=== PATIENT | male | born 1975 | race Two or more races ===

== ENCOUNTER 2017-09-24 01:37 | Emergency (ER) | payer MEDICAID, OTHER ==
[~2017-09-24] VITALS: Ht 165.1 cm; Wt 99.3 kg
[~2017-09-24 01:37] MED LIST: ADVAIR 100-501 EACH; AMITRIPTYLINE H25 MG PO; ASPIRIN ENTERI325 MG PO; DOXEPIN HCL25 MG PO; GABAPENTIN300 MG PO; LASIX40 MG PO; LEVAQUIN500 MG PO; METOPROLOL TART25 MG PO; MUCINEX DM ER1 EACH PO; NEXIUM40 MG; OMEGA-31000 MG; OMEPRAZOLE40 MG; POTASSIUM CHLO20 ME1 PO; PRAVASTATIN SOD20 MG PO; PREDNISONE20 MG PO; PROMETHAZINE CODEINE PO; ROBITUSSIN COU118 ML PO; SPIRIVA18 MCG INH; TRAZODONE HCL50 MG PO; ULTRAM50 MG PO; breo
[2017-09-24] MEDS ORDERED: ACETAMINOPHEN 325 MG TAB PO ONE (02:00)
--- NOTE | 2017-09-24 02:26 | Diagnostic Imaging Report ---
EXAMINATION: CHEST SINGLE (NOT PORTABLE) INDICATION: Cough. COMPARISON: 09/22/2016 FINDINGS: TUBES and LINES: None. LUNGS: Lungs are well inflated. There are bibasilar atelectasis. There is no evidence of pneumonia or pulmonary edema. PLEURA: No pleural effusion or pneumothorax. HEART AND MEDIASTINUM: The cardiomediastinal silhouette is unremarkable. BONES AND SOFT TISSUES: No acute osseous lesion. Soft tissues are unremarkable. UPPER ABDOMEN: No free air under the diaphragm. IMPRESSION: No acute thoracic abnormality. Signed by: Dr. Wilfred Dickerson M.D. on 09/24/2017 2:22 AM
[2017-09-24 02:34] LABS: BASOPHILS # (AUTO) 0.1 (0.0-0.1); BASOPHILS % 0.6 % (0.0-1.0); EOSINOPHILS # (AUTO) 0.3 (0.0-0.4); EOSINOPHILS % 2.2 % (0.0-6.0); HEMATOCRIT 40.8 % (38.2-49.6); HEMOGLOBIN 13.5 g/dL (14.0-18.0); LYMPHOCYTES # (AUTO) 2.1 (1.0-3.2); LYMPHOCYTES % 17.6 % (18.0-39.1); MEAN CORPUSCULAR HEMOGLOBIN 26.3 pg (28-32); MEAN CORPUSCULAR HGB CONC 33.1 g/dL (31-35); MEAN CORPUSCULAR VOLUME 79.5 fL (81-99); MONOCYTES # (AUTO) 1.4 (0.2-0.8); MONOCYTES % 11.5 % (4.4-11.3); NEUTROPHILS # (AUTO) 8.2 (2.1-6.9); NEUTROPHILS % 67.8 % (38.7-80.0); PLATELET COUNT 348 x10e3/uL (140-360); RED BLOOD COUNT 5.13 x10e6/uL (4.3-5.7); RED CELL DISTRIBUTION WIDTH 14.4 % (11.7-14.4)
[2017-09-24 02:53] LABS: ALANINE AMINOTRANSFERASE 108 IU/L (0-55); ALKALINE PHOSPHATASE 110 IU/L (40-150); ANION GAP 13.6 mmol/L (8-16); BLOOD UREA NITROGEN 10 mg/dL (7-26); BUN/CREATININE RATIO 10 (6-25); CALCIUM 9.1 mg/dL (8.4-10.2); CARBON DIOXIDE 22 mmol/L (22-29); CHLORIDE 104 mmol/L (98-107); CREATINE KINASE 107 IU/L (30-200); EST GLOMERULAR FILTRATION RATE > 60 ML/MIN (60-); GLUCOSE 126 mg/dL (74-118); POTASSIUM 3.6 mmol/L (3.5-5.1); SODIUM 136 mmol/L (136-145)
[2017-09-24 03:00] LABS: TROPONIN I < 0.001 ng/mL (0-0.300)
[2017-09-24 03:13] VITALS: BP 103/73
== END 2017-09-24 03:20 | disposition home or self-care (01) ==
LOC: ER 01:37
DX: R07.89 Other chest pain (principal); R05 Cough; J10.1 Influenza due to other identified influenza virus with other respiratory manifestations; I10 Essential (primary) hypertension; E11.9 Type 2 diabetes mellitus without complications; I50.9 Heart failure, unspecified; J45.909 Unspecified asthma, uncomplicated; Z87.01 Personal history of pneumonia (recurrent)
CPT/HCPCS: 36415; 71010; 80053; 82550; 82553; 83605; 84484; 85025; 87400; 93005; 99284

== ENCOUNTER 2024-10-28 00:19 | Inpatient (IN) | payer SELFPAY ==
[2024-10-28] VITALS (31 sets, daily range): BP systolic 79–110; BP diastolic 48–72; PULSE 63–99; RESP 14–38; TEMP 97.7–98.8; O2SAT 94–100
[~2024-10-28] VITALS: Ht 160 cm; Wt 98.9 kg
[~2024-10-28 00:19] MED LIST changes: +ADVAIR 250-501 EACH INH; +AMLODIPINE BESY10 MG PO; +AMOX TR-K CLV1 EAC2 PO; +BREO INH; +DICYCLOMINE HCL10 MG PO; +ENTRESTO 24 MG1 EACH PO; +FAMOTIDINE20 MG PO; +FUROSEMIDE40 MG PO; +K-TAB10 MEQ PO; +LISINOPRIL-HCT1 EAC1 PO; +METFORMIN HCL500 MG PO; +METOPROLOL TART50 MG PO; +NAPROSYN500 MG PO; +NAPROXEN500 MG PO; -OMEGA-31000 MG; +OMEGA-31000 MG PO; +OMEPRAZOLE40 MG PO; +OZEMPIC0.25 MG/02 SC; +PANTOPRAZOLE SO20 MG PO; +PRAVASTATIN SOD40 MG PO; +ULTRAM 50MG50 MG PO
[2024-10-28] MEDS: SODIUM CHLORIDE 0.9% 1000ML 1,000 ML IV ONE ×2 (00:50→03:36)
[2024-10-28] MEDS: CALCIUM GLUC 1 G/50 ML NACL 50 ML IV ONE (00:51)
[2024-10-28] MEDS: SODIUM CHLORIDE 0.9% 1000ML 3,000 ML IV STA (00:51)
[2024-10-28] MEDS: GLUCAGON FOR INJ 1 MG VIAL IV ONE (00:56)
[2024-10-28 01:02] LABS: BASOPHILS # (AUTO) 0.1 (0.0-0.1); BASOPHILS % 0.3 % (0.0-1.0); EOSINOPHILS # (AUTO) 0.2 (0.0-0.4); EOSINOPHILS % 1.5 % (0.0-6.0); HEMATOCRIT 34.5 % (38.2-49.6); HEMOGLOBIN 11.7 g/dL (14.0-18.0); LYMPHOCYTES # (AUTO) 4.3 (1.0-3.2); MEAN CORPUSCULAR HEMOGLOBIN 26.5 pg (28-32); MEAN CORPUSCULAR HGB CONC 33.9 g/dL (31-35); MEAN CORPUSCULAR VOLUME 78.2 fL (81-99); MONOCYTES # (AUTO) 1.5 (0.2-0.8); MONOCYTES % 9.8 % (4.4-11.3); NEUTROPHILS # (AUTO) 9.2 (2.1-6.9); NEUTROPHILS % 60.1 % (38.7-80.0); PLATELET COUNT 367 x10e3/uL (140-360); RED BLOOD COUNT 4.41 x10e6/uL (4.3-5.7); RED CELL DISTRIBUTION WIDTH 14.4 % (11.7-14.4); WHITE BLOOD COUNT 15.28 x10e3/uL (4.8-10.8)
[2024-10-28 01:16] LABS: ALANINE AMINOTRANSFERASE 36 IU/L (0-55); ALBUMIN 3.8 g/dL (3.5-5.0); ALBUMIN/GLOBULIN RATIO 1.1 (0.8-2.0); ALKALINE PHOSPHATASE 94 IU/L (40-150); ANION GAP 18.2 mmol/L (8-16); BILIRUBIN,TOTAL 0.5 mg/dL (0.2-1.2); BLOOD UREA NITROGEN 37 mg/dL (7-26); BUN/CREATININE RATIO 7 (6-25); CALCIUM 8.5 mg/dL (8.4-10.2); CARBON DIOXIDE 20 mmol/L (22-29); CHLORIDE 94 mmol/L (98-107); CREATINE KINASE 53 IU/L (30-200); CREATININE, SERUM 5.11 mg/dL (0.72-1.25); EST GLOMERULAR FILTRATION RATE 13 ML/MIN (>=60); GLUCOSE 116 mg/dL (74-118); SODIUM 129 mmol/L (136-145); TOTAL PROTEIN 7.3 g/dL (6.5-8.1)
[2024-10-28 01:17] LABS: POTASSIUM 3.2 mmol/L (3.5-5.1)
[2024-10-28 01:21] LABS: CORONAVIRUS COVID-19 AG NEGATIVE (NEGATIVE); INFLUENZA A AG NEGATIVE (NEGATIVE); INFLUENZA B AG NEGATIVE (NEGATIVE)
[2024-10-28 01:27] LABS: TROPONIN I < 0.001 ng/mL (0-0.300)
[2024-10-28 04:54] LABS: CREATINE KINASE 39 IU/L (30-200)
[2024-10-28 05:03] LABS: TROPONIN I < 0.001 ng/mL (0-0.300)
[2024-10-28 05:19] LABS: BILIRUBIN,URINE NEGATIVE (NEGATIVE); CLARITY,URINE CLEAR (CLEAR); COLOR,URINE YELLOW (YELLOW); GLUCOSE, URINE NEGATIVE (NEGATIVE); KETONES,URINE NEGATIVE (NEGATIVE); LEUKOCYTE ESTERASE ,URINE NEGATIVE (NEGATIVE); NITRITE,URINE NEGATIVE (NEGATIVE); PH,URINE 6 (5 - 7); PROTEIN,URINE DIPSTICK NEGATIVE (NEGATIVE); URINE UROBILINOGEN 0.2 mg/dL (0.2 - 1)
[2024-10-28 05:31] LABS: BACTERIA,URINE FEW /HPF; EPITHELIAL CELLS,URINE FEW /LPF; RBC,URINE 0-5 /HPF (0-5); WBC,URINE (MAN) 0-5 /HPF (0-5)
[2024-10-28 05:32] LABS: MUCUS,URINE FEW; RENAL EPITHELIAL CELLS,URINE FEW
[2024-10-28] MEDS: SODIUM CHLORIDE 0.9% 1000ML 1,000 ML IV SCH ×2 (10:15→15:15)
[2024-10-28] MEDS ORDERED: DOCUSATE SODIUM 100 MG CAP PO PRN (12:30)
[2024-10-28] MEDS ORDERED: MELATONIN 3 MG TAB PO PRN (12:30)
[2024-10-28] MEDS ORDERED: ALBUTEROL/IPRATROPIUM 3 ML NEB NEB PRN (12:30)
[2024-10-28] MEDS ORDERED: DEXTROSE 50% SYRINGE 50 ML IV PRN (12:30)
[2024-10-28] MEDS ORDERED: ONDANSETRON HCL INJ 2MG/ML 2ML 2 MG/ML VIAL IV PRN (12:30)
[2024-10-28] MEDS: GABAPENTIN 300 MG CAP PO SCH (14:31)
[2024-10-28 14:35] LABS: CHOL/HDL RATIO 5.5 (3.9-4.7)
[2024-10-28 14:55] LABS: CREATINE KINASE 28 IU/L (30-200)
[2024-10-28] MEDS ORDERED: SODIUM CHLORIDE 0.9% 1000ML 1,000 ML ONE (14:58)
[2024-10-28 15:02] LABS: TROPONIN I < 0.001 ng/mL (0-0.300)
[2024-10-28] MEDS: INSULIN REGULAR, HUMAN 100 UNIT/1 ML SQ SCH (16:30)
[2024-10-28 18:11] LABS: CREATINE KINASE 30 IU/L (30-200)
[2024-10-28 18:19] LABS: TROPONIN I < 0.001 ng/mL (0-0.300)
[2024-10-28 18:22] LABS: ANION GAP 12.8 mmol/L (8-16); CALCIUM 7.7 mg/dL (8.4-10.2); CREATININE, SERUM 2.18 mg/dL (0.72-1.25)
[2024-10-28 18:31] LABS: POTASSIUM 2.8 mmol/L (3.5-5.1)
[2024-10-28] MEDS: PANTOPRAZOLE SOD 40 MG TABEC PO SCH (18:45)
[2024-10-28] MEDS: SALMETEROL XINAF/FLUTICASONE 250/50 MCG INHALER INH SCH (19:40)
[2024-10-28] MEDS: POTASSIUM CHLORIDE 20MEQ/100ML 100 ML IV SCH (20:00)
[2024-10-28] MEDS: DICYCLOMINE HCL 10 MG CAP PO SCH (20:39)
[2024-10-28] MEDS: AMITRIPTYLINE HCL 25 MG TAB PO SCH (20:39)
[2024-10-28] MEDS: HEPARIN SOD (PORCINE) 5,000 UNIT/ML VIAL SC SCH (20:41)
[2024-10-29] VITALS (29 sets, daily range): BP systolic 76–112; BP diastolic 51–77; PULSE 70–110; RESP 12–42; TEMP 98–98.4; O2SAT 93–100
[2024-10-29 06:36] LABS: BASOPHILS % 0.4 % (0.0-1.0); EOSINOPHILS # (AUTO) 0.3 (0.0-0.4); EOSINOPHILS % 3.9 % (0.0-6.0); HEMATOCRIT 31.7 % (38.2-49.6); HEMOGLOBIN 10.6 g/dL (14.0-18.0); LYMPHOCYTES # (AUTO) 2.5 (1.0-3.2); LYMPHOCYTES % 34.3 % (18.0-39.1); MEAN CORPUSCULAR HEMOGLOBIN 26.7 pg (28-32); MEAN CORPUSCULAR HGB CONC 33.4 g/dL (31-35); MEAN CORPUSCULAR VOLUME 79.8 fL (81-99); MONOCYTES # (AUTO) 0.7 (0.2-0.8); MONOCYTES % 9.7 % (4.4-11.3); NEUTROPHILS # (AUTO) 3.8 (2.1-6.9); NEUTROPHILS % 51.6 % (38.7-80.0); PLATELET COUNT 288 x10e3/uL (140-360); RED BLOOD COUNT 3.97 x10e6/uL (4.3-5.7); RED CELL DISTRIBUTION WIDTH 14.5 % (11.7-14.4)
[2024-10-29 06:58] LABS: ALBUMIN/GLOBULIN RATIO 0.9 (0.8-2.0); ANION GAP 13.2 mmol/L (8-16); BILIRUBIN,TOTAL 0.4 mg/dL (0.2-1.2); CALCIUM 8.6 mg/dL (8.4-10.2); CREATININE, SERUM 1.76 mg/dL (0.72-1.25); TOTAL PROTEIN 6.4 g/dL (6.5-8.1)
[2024-10-29 07:02] LABS: POTASSIUM 3.2 mmol/L (3.5-5.1)
[2024-10-29] MEDS ORDERED: FAMOTIDINE 20 MG TAB PO SCH (09:00)
[2024-10-29] MEDS: SENNOSIDES 8.6 MG TAB PO SCH (09:00)
[2024-10-29] MEDS: HYDROCORTISONE ACETATE 25 MG/SUPP.RECT SUPP RC SCH (09:45)
[2024-10-29] MEDS: POTASSIUM CHLORIDE 20 MEQ TAB CR PO STA (11:41)
[2024-10-30] VITALS (19 sets, daily range): BP systolic 95–111; BP diastolic 60–74; PULSE 71–100; RESP 13–34; TEMP 97.8–98.6; O2SAT 96–100
[2024-10-30 07:33] LABS: ANION GAP 12.6 mmol/L (8-16); CALCIUM 8.2 mg/dL (8.4-10.2); CREATININE, SERUM 1.05 mg/dL (0.72-1.25); POTASSIUM 3.6 mmol/L (3.5-5.1)
[2024-10-30 10:20] LABS: HEMATOCRIT 33.7 % (38.2-49.6); HEMOGLOBIN 11.1 g/dL (14.0-18.0)
[2024-10-30] MEDS: ALPRAZOLAM 0.25 MG TAB PO SCH (13:01)
[2024-10-30] MEDS: CALCIUM CARBONATE 500 MG CHEWABLE TABS PO SCH (13:01)
[2024-10-31] MEDS: CALCIUM GLUC 1 G/50 ML NACL 50 ML IV ONE (00:52)
[2024-10-31 06:46] LABS: BASOPHILS # (AUTO) 0.1 (0.0-0.1); BASOPHILS % 0.4 % (0.0-1.0); EOSINOPHILS # (AUTO) 0.4 (0.0-0.4); EOSINOPHILS % 3.5 % (0.0-6.0); HEMATOCRIT 38.5 % (38.2-49.6); HEMOGLOBIN 12.3 g/dL (14.0-18.0); LYMPHOCYTES # (AUTO) 3.6 (1.0-3.2); LYMPHOCYTES % 29.2 % (18.0-39.1); MEAN CORPUSCULAR HEMOGLOBIN 26.1 pg (28-32); MEAN CORPUSCULAR HGB CONC 31.9 g/dL (31-35); MEAN CORPUSCULAR VOLUME 81.7 fL (81-99); MONOCYTES # (AUTO) 0.9 (0.2-0.8); MONOCYTES % 7.4 % (4.4-11.3); NEUTROPHILS # (AUTO) 7.2 (2.1-6.9); NEUTROPHILS % 59.2 % (38.7-80.0); PLATELET COUNT 301 x10e3/uL (140-360); RED BLOOD COUNT 4.71 x10e6/uL (4.3-5.7); RED CELL DISTRIBUTION WIDTH 14.4 % (11.7-14.4); WHITE BLOOD COUNT 12.17 x10e3/uL (4.8-10.8)
[2024-10-31 07:14] VITALS: PULSE 89; RESP 18; O2SAT 97
[2024-10-31 07:20] LABS: ANION GAP 16.6 mmol/L (8-16); CALCIUM 8.6 mg/dL (8.4-10.2); CREATININE, SERUM 1.29 mg/dL (0.72-1.25); POTASSIUM 3.6 mmol/L (3.5-5.1)
[2024-10-31 08:00] VITALS: BP 95/65; PULSE 89; RESP 18; TEMP 98.6; O2SAT 97
[2024-10-31 08:35] VITALS: BP 94/61; PULSE 88; RESP 18; TEMP 98.1; O2SAT 96
[2024-10-31] MEDS ORDERED: ANUCORT-HC25 MG RC (09:33)
[2024-10-31] MEDS ORDERED: MIDODRINE HCL5 MG PO (09:33)
[2024-10-31] MEDS ORDERED: TUMS200 MG PO (09:33)
[2024-10-31] MEDS ORDERED: SENOKOT8.6 MG PO (09:33)
[2024-10-31] MEDS ORDERED: PANTOPRAZOLE SO40 MG PO (09:33)
[2024-10-31] MEDS ORDERED: CEPHALEXIN500 MG PO (09:37)
[2024-10-31] MEDS ORDERED: METRONIDAZOLE500 MG PO (09:37)
[2024-10-31 09:49] VITALS: BP 94/61
[2024-10-31] MEDS: MIDODRINE 2.5 MG TAB PO ONE (09:49)
== END 2024-10-31 11:28 | disposition home or self-care (01) | DRG 315 ==
LOC: ER 00:25 → ERHOLD 02:32 → ICU 06:19 → MED/SURG3 10-30 09:10
PROVIDERS: ADMIT Internal Medicine; ATTEND Internal Medicine
PROC: 06HY33Z Insertion of Infusion Device into Lower Vein, Percutaneous Approach (ICD-10-PCS; principal; 2024-10-28)
DX: I95.9 Hypotension, unspecified (principal); I50.32 Chronic diastolic (congestive) heart failure; N17.9 Acute kidney failure, unspecified; K62.5 Hemorrhage of anus and rectum; R07.89 Other chest pain; K64.8 Other hemorrhoids; J45.909 Unspecified asthma, uncomplicated; E66.9 Obesity, unspecified; Z68.38 Body mass index [BMI] 38.0-38.9, adult; I11.0 Hypertensive heart disease with heart failure; E11.9 Type 2 diabetes mellitus without complications; Z11.52 Encounter for screening for COVID-19; K76.0 Fatty (change of) liver, not elsewhere classified; K21.9 Gastro-esophageal reflux disease without esophagitis; G47.30 Sleep apnea, unspecified; F41.9 Anxiety disorder, unspecified; F39 Unspecified mood [affective] disorder; R53.81 Other malaise; T46.5X5A Adverse effect of other antihypertensive drugs, initial encounter; Z79.84 Long term (current) use of oral hypoglycemic drugs; Z79.51 Long term (current) use of inhaled steroids; Z90.49 Acquired absence of other specified parts of digestive tract
CPT/HCPCS: 36415; 70450; 71045; 76770; 80048; 80053; 80061; 81001; 82550; 82948; 83036; 83605; 83690; 83880; 84484; 85014; 85018; 85025; 87040; 87086; 93005; 93306; 94664; 94799; 99284; J1610; J1644; J2470; J2543; J3480; J7030

== ENCOUNTER 2025-05-15 20:57 | Emergency (ER) | payer OTHER ==
[~2025-05-15] VITALS: Ht 160 cm; Wt 113.4 kg
[2025-05-15 20:57] VITALS: PULSE 115; RESP 29; TEMP 99.2; O2SAT 99
[~2025-05-15 20:57] MED LIST changes: +ANUCORT-HC25 MG RC; +CEPHALEXIN500 MG PO; +METRONIDAZOLE500 MG PO; +MIDODRINE HCL5 MG PO; +PANTOPRAZOLE SO40 MG PO; +SENOKOT8.6 MG PO; +TUMS200 MG PO
[2025-05-15 21:13] LABS: BASOPHILS % 0.3 % (0.0-1.0); EOSINOPHILS % 3.3 % (0.0-6.0); LYMPHOCYTES % 25.4 % (18.0-39.1); MONOCYTES % 9.5 % (4.4-11.3); NEUTROPHILS % 61.2 % (38.7-80.0); RED CELL DISTRIBUTION WIDTH 14.5 % (11.7-14.4)
[2025-05-15 21:36] LABS: EST GLOMERULAR FILTRATION RATE 82.0 ML/MIN (>=60)
[2025-05-15 22:41] VITALS: BP 123/87; PULSE 119
[2025-05-15] MEDS: METOPROLOL TARTRATE INJ 1 MG/ML VIAL IV STA (22:41)
[2025-05-16] MEDS: KETOROLAC TROMETHAMINE 30 MG/ML VIAL IV STA (00:38)
== END 2025-05-16 01:00 | disposition home or self-care (01) ==
LOC: ER 21:04
DX: R06.02 Shortness of breath (principal); R07.89 Other chest pain; I10 Essential (primary) hypertension; E11.40 Type 2 diabetes mellitus with diabetic neuropathy, unspecified; I50.9 Heart failure, unspecified; E78.5 Hyperlipidemia, unspecified; J45.909 Unspecified asthma, uncomplicated; G47.33 Obstructive sleep apnea (adult) (pediatric)
CPT/HCPCS: 36415; 71045; 80053; 82550; 83690; 83880; 84484; 85025; 93005; 99284; J1885

== ENCOUNTER 2025-06-07 08:55 | Inpatient (IN) | payer OTHER ==
[~2025-06-07] VITALS: Ht 160 cm; Wt 100.0 kg
[2025-06-07] VITALS (18 sets, daily range): BP systolic 79–120; BP diastolic 50–77; PULSE 76–108; RESP 9–25; TEMP 97.8–98.2; O2SAT 95–100
[2025-06-07 09:33] LABS: BASOPHILS % 0.3 % (0.0-1.0); EOSINOPHILS % 5.4 % (0.0-6.0); LYMPHOCYTES % 27.2 % (18.0-39.1); MONOCYTES % 6.1 % (4.4-11.3); NEUTROPHILS % 60.7 % (38.7-80.0); RED CELL DISTRIBUTION WIDTH 14.4 % (11.7-14.4)
[2025-06-07] MEDS: SODIUM CHLORIDE 0.9% 1000ML 1,000 ML IV STA ×3 (09:34→10:56)
[2025-06-07 09:50] LABS: INR 1.0
[2025-06-07 10:05] LABS: EST GLOMERULAR FILTRATION RATE 49 ML/MIN (>=60)
[2025-06-07] MEDS ORDERED: SODIUM CHLORIDE 0.9% 1000ML 1,000 ML ONE (10:45)
[2025-06-07 11:12] LABS: AMPHETAMINES SCREEN,URINE NEGATIVE (NEGATIVE); LEUKOCYTE ESTERASE ,URINE NEGATIVE (NEGATIVE); OPIATES SCREEN,URINE NEGATIVE (NEGATIVE); PROTEIN,URINE DIPSTICK NEGATIVE (NEGATIVE)
[2025-06-07 11:13] LABS: CANNABINOIDS SCREEN,URINE NEGATIVE (NEGATIVE); COCAINE SCREEN,URINE NEGATIVE (NEGATIVE); METHADONE SCREEN, URINE NEGATIVE (NEGATIVE); URINE UROBILINOGEN 0.2 mg/dL (0.2 - 1)
[2025-06-07 11:31] LABS: EPITHELIAL CELLS,URINE FEW /LPF; WBC,URINE (MAN) 0-5 /HPF (0-5)
[2025-06-07] MEDS: SODIUM CHLORIDE 0.9% 1000ML 1,000 ML IV SCH (13:13)
[2025-06-07] MEDS ORDERED: ONDANSETRON HCL INJ 2MG/ML 2ML 2 MG/ML VIAL IV PRN (15:15)
[2025-06-07] MEDS: PANTOPRAZOLE SOD 40 MG TABEC PO SCH (15:42)
[2025-06-07] MEDS ORDERED: DEXTROSE 50% SYRINGE 50 ML IV PRN (17:30)
[2025-06-07] MEDS ORDERED: KAPSPARGO SPRIN25 MG PO (18:36)
[2025-06-07] MEDS ORDERED: ENTRESTO 24 MG1 EACH PO (18:36)
[2025-06-07] MEDS ORDERED: FUROSEMIDE40 MG PO (18:36)
[2025-06-07] MEDS: INSULIN LISPRO 100 UNIT/1 ML 3ML VIAL SQ SCH (20:08)
[2025-06-07] MEDS: PRAVASTATIN 20 MG TAB PO SCH (20:13)
[2025-06-07] MEDS ORDERED: ZOLPIDEM TARTRATE 5 MG TAB PO PRN (21:00)
[2025-06-08] VITALS (27 sets, daily range): BP systolic 76–122; BP diastolic 49–84; PULSE 79–107; RESP 8–37; TEMP 98–100; O2SAT 93–100
[2025-06-08 05:26] LABS: BASOPHILS % 0.4 % (0.0-1.0); EOSINOPHILS % 5.3 % (0.0-6.0); LYMPHOCYTES % 27.9 % (18.0-39.1); MONOCYTES % 6.5 % (4.4-11.3); NEUTROPHILS % 59.6 % (38.7-80.0); RED CELL DISTRIBUTION WIDTH 14.6 % (11.7-14.4)
[2025-06-08 05:53] LABS: EST GLOMERULAR FILTRATION RATE 60.0 ML/MIN (>=60)
[2025-06-08] MEDS: POTASSIUM CHLORIDE 20 MEQ TAB CR PO ONE ×2 (06:16→08:58)
[2025-06-08] MEDS: LACTATED RINGER'S 1,000 ML INJ ONE (08:58)
[2025-06-08] MEDS ORDERED: REGADENOSON 0.4 MG/5 ML SYR IV ONE (15:02)
[2025-06-08] MEDS: ACETAMINOPHEN 325 MG TAB PO PRN (16:13)
[2025-06-08] MEDS: LACTATED RINGER'S 350 ML INJ SCH (22:34)
[2025-06-09] VITALS (20 sets, daily range): BP systolic 83–120; BP diastolic 51–94; PULSE 76–121; RESP 7–28; TEMP 97.8–99.3; O2SAT 95–100
[2025-06-09 07:22] LABS: BASOPHILS % 0.4 % (0.0-1.0); EOSINOPHILS % 5.2 % (0.0-6.0); LYMPHOCYTES % 25.5 % (18.0-39.1); MONOCYTES % 7.7 % (4.4-11.3); NEUTROPHILS % 60.9 % (38.7-80.0); RED CELL DISTRIBUTION WIDTH 14.6 % (11.7-14.4)
[2025-06-09 07:37] LABS: EST GLOMERULAR FILTRATION RATE 81.0 ML/MIN (>=60)
[2025-06-09 08:08] LABS: PHOSPHORUS 3.2 MG/DL (2.3-4.7)
[2025-06-09] MEDS: LACTATED RINGER'S 1,000 ML INJ ONE (17:38)
[2025-06-10] VITALS (27 sets, daily range): BP systolic 80–107; BP diastolic 44–73; PULSE 71–109; RESP 12–33; TEMP 98–99.1; O2SAT 95–100
[2025-06-10 06:41] LABS: BASOPHILS % 0.5 % (0.0-1.0); EOSINOPHILS % 4.3 % (0.0-6.0); LYMPHOCYTES % 24.4 % (18.0-39.1); MONOCYTES % 7.6 % (4.4-11.3); NEUTROPHILS % 62.9 % (38.7-80.0); RED CELL DISTRIBUTION WIDTH 14.5 % (11.7-14.4)
[2025-06-10 07:03] LABS: EST GLOMERULAR FILTRATION RATE 57.0 ML/MIN (>=60); PHOSPHORUS 4.5 MG/DL (2.3-4.7)
[2025-06-10] MEDS: POTASSIUM CHLORIDE 20 MEQ TAB CR PO STA (08:00)
[2025-06-10] MEDS: MIDODRINE 2.5 MG TAB PO SCH (08:00)
[2025-06-11] VITALS (16 sets, daily range): BP systolic 78–120; BP diastolic 23–86; PULSE 70–103; RESP 11–32; TEMP 97.9–99.1; O2SAT 94–100
[2025-06-11 06:20] LABS: BASOPHILS % 0.6 % (0.0-1.0); EOSINOPHILS % 5.9 % (0.0-6.0); LYMPHOCYTES % 27.1 % (18.0-39.1); MONOCYTES % 7.1 % (4.4-11.3); NEUTROPHILS % 59.1 % (38.7-80.0); RED CELL DISTRIBUTION WIDTH 14.2 % (11.7-14.4)
[2025-06-11 06:46] LABS: EST GLOMERULAR FILTRATION RATE 73.0 ML/MIN (>=60); PHOSPHORUS 1.8 MG/DL (2.3-4.7)
[2025-06-11] MEDS: LACTATED RINGER'S 1,000 ML ONE (08:31)
[2025-06-11] MEDS: MIDODRINE HCL 5 MG TABLET PO SCH (09:10)
[2025-06-12] VITALS: BP 102/61; PULSE 81; RESP 20; TEMP 99.2; O2SAT 99
[2025-06-12 04:00] VITALS: BP 88/53; PULSE 61; RESP 20; TEMP 98.6; O2SAT 100
[2025-06-12 07:35] LABS: BASOPHILS % 0.5 % (0.0-1.0); EOSINOPHILS % 7.5 % (0.0-6.0); LYMPHOCYTES % 27.2 % (18.0-39.1); MONOCYTES % 9.6 % (4.4-11.3); NEUTROPHILS % 55.0 % (38.7-80.0); RED CELL DISTRIBUTION WIDTH 14.1 % (11.7-14.4)
[2025-06-12 08:00] VITALS: BP 98/57; PULSE 75; RESP 20; TEMP 98.6; O2SAT 97
[2025-06-12 08:02] LABS: EST GLOMERULAR FILTRATION RATE 82.0 ML/MIN (>=60); PHOSPHORUS 3.2 MG/DL (2.3-4.7)
[2025-06-12 08:04] VITALS: BP 88/53; PULSE 61; RESP 20; TEMP 98.6; O2SAT 100
[2025-06-12 12:00] VITALS: BP 112/83; PULSE 88; RESP 20; TEMP 98.8; O2SAT 100
[2025-06-12] MEDS ORDERED: PRAVASTATIN SOD20 MG PO (15:06)
[2025-06-12] MEDS ORDERED: MIDODRINE HCL5 MG PO (15:06)
[2025-06-12 16:00] VITALS: BP 115/75; PULSE 82; RESP 22; TEMP 99; O2SAT 99
[2025-06-17 08:53] LABS: RENIN, ACTIVITY PLASMA 29.289
[2025-06-17 08:54] LABS: ALDOSTERONE 1.9
== END 2025-06-12 17:00 | disposition home or self-care (01) | DRG 74 ==
LOC: ER 09:00 → ERHOLD 11:49 → ICU 16:42 → MED/SURG2 06-11 12:37
PROVIDERS: ADMIT Internal Medicine; ATTEND Internal Medicine
PROC: 02HV33Z Insertion of Infusion Device into Superior Vena Cava, Percutaneous Approach (ICD-10-PCS; principal; 2025-06-07)
DX: E11.43 Type 2 diabetes mellitus with diabetic autonomic (poly)neuropathy (principal); N17.9 Acute kidney failure, unspecified; I50.32 Chronic diastolic (congestive) heart failure; I11.0 Hypertensive heart disease with heart failure; E11.42 Type 2 diabetes mellitus with diabetic polyneuropathy; E11.22 Type 2 diabetes mellitus with diabetic chronic kidney disease; K76.0 Fatty (change of) liver, not elsewhere classified; E11.65 Type 2 diabetes mellitus with hyperglycemia; E87.6 Hypokalemia; I95.1 Orthostatic hypotension; E78.5 Hyperlipidemia, unspecified; D75.839 Thrombocytosis, unspecified; I25.10 Atherosclerotic heart disease of native coronary artery without angina pectoris; N18.31 Chronic kidney disease, stage 3a; D63.1 Anemia in chronic kidney disease; R53.81 Other malaise; K21.9 Gastro-esophageal reflux disease without esophagitis; J45.909 Unspecified asthma, uncomplicated; N50.812 Left testicular pain; R74.02 Elevation of levels of lactic acid dehydrogenase [LDH]; N45.3 Epididymo-orchitis; E66.9 Obesity, unspecified; Z68.39 Body mass index [BMI] 39.0-39.9, adult; G47.33 Obstructive sleep apnea (adult) (pediatric); Z79.84 Long term (current) use of oral hypoglycemic drugs; Z79.51 Long term (current) use of inhaled steroids; Z98.61 Coronary angioplasty status; Z98.84 Bariatric surgery status; Z83.3 Family history of diabetes mellitus; Z82.49 Family history of ischemic heart disease and other diseases of the circulatory system
CPT/HCPCS: 36415; 36569; 71045; 78452; 80053; 80307; 81001; 82088; 82533; 82550; 82948; 83605; 83735; 84100; 84156; 84244; 84484; 85025; 85610; 85730; 87040; 87071; 87205; 93005; 93017; 93306; 96372; 99252; 99284; A9502; J0696; J2470; J7030

== ENCOUNTER 2025-07-02 23:44 | Inpatient (IN) | payer OTHER ==
[~2025-07-02] VITALS: Ht 160 cm; Wt 99.8 kg
[~2025-07-02 23:44] MED LIST changes: +KAPSPARGO SPRIN25 MG PO
[2025-07-03] VITALS (8 sets, daily range): BP systolic 87–102; BP diastolic 46–69; PULSE 77–100; RESP 14–28; TEMP 98.8–99; O2SAT 93–98
[2025-07-03] MEDS: SODIUM CHLORIDE 0.9% 1000ML 1,000 ML IV ONE (00:36)
[2025-07-03 00:46] LABS: BASOPHILS % 0.3 % (0.0-1.0); EOSINOPHILS % 4.2 % (0.0-6.0); LYMPHOCYTES % 34.7 % (18.0-39.1); MONOCYTES % 9.6 % (4.4-11.3); NEUTROPHILS % 51.0 % (38.7-80.0); RED CELL DISTRIBUTION WIDTH 14.1 % (11.7-14.4)
[2025-07-03 01:00] LABS: INR 1.0
[2025-07-03 01:05] LABS: EST GLOMERULAR FILTRATION RATE 34 ML/MIN (>=60)
[2025-07-03] MEDS: POTASSIUM CHLORIDE 20 MEQ TAB CR PO STA (01:37)
[2025-07-03 02:12] LABS: T3 UPTAKE 26.28 % (22.5-37.0)
[2025-07-03] MEDS: KCL 20MEQ/.9 SOD CHL 1,000 ML IV ONE (04:26)
[2025-07-03] MEDS: MIDODRINE HCL 5 MG TABLET PO SCH (06:53)
[2025-07-03] MEDS: CALCIUM CARBONATE 500 MG CHEWABLE TABS PO SCH (18:24)
[2025-07-03] MEDS: GABAPENTIN 300 MG CAP PO SCH (18:25)
[2025-07-03] MEDS: PRAVASTATIN 20 MG TAB PO SCH (21:45)
[2025-07-03] MEDS ORDERED: DEXTROSE 50% SYRINGE 50 ML IV PRN (22:00)
[2025-07-04] VITALS (33 sets, daily range): BP systolic 80–119; BP diastolic 48–80; PULSE 75–106; RESP 10–27; TEMP 98–98.6; O2SAT 94–100
[2025-07-04 06:30] LABS: BASOPHILS % 0.4 % (0.0-1.0); EOSINOPHILS % 5.1 % (0.0-6.0); LYMPHOCYTES % 34.3 % (18.0-39.1); MONOCYTES % 8.5 % (4.4-11.3); NEUTROPHILS % 51.4 % (38.7-80.0); RED CELL DISTRIBUTION WIDTH 14.0 % (11.7-14.4)
[2025-07-04 06:55] LABS: EST GLOMERULAR FILTRATION RATE 85.0 ML/MIN (>=60)
[2025-07-04] MEDS: INSULIN REGULAR, HUMAN 100 UNIT/1 ML SQ SCH (07:30)
[2025-07-04] MEDS: GABAPENTIN 300 MG CAP PO SCH (08:00)
[2025-07-04 08:59] LABS: CHOL/HDL RATIO 5.4 (3.9-4.7); LDL CHOLESTEROL 67.0 MG/DL (60-130)
[2025-07-04] MEDS ORDERED: GABAPENTIN 300 MG CAP PO SCH (09:00)
[2025-07-04] MEDS ORDERED: SODIUM CHLORIDE 0.9% 1000ML 1,000 ML IV SCH (11:30)
[2025-07-04] MEDS: SODIUM CHLORIDE 0.9% 1000ML 1,000 ML IV SCH (11:37)
[2025-07-04] MEDS: POTASSIUM CHLORIDE 20 MEQ TAB CR PO ONE (18:39)
[2025-07-04] MEDS ORDERED: POTASSIUM CHLORIDE 20 MEQ TAB CR PO ONE (22:00)
== END 2025-07-04 20:45 | disposition home or self-care (01) | DRG 315 ==
LOC: ER 07-03 00:08 → ERHOLD 07-03 01:41 → ICU 07-03 19:10
PROVIDERS: ADMIT Internal Medicine; ATTEND Internal Medicine
DX: I95.89 Other hypotension (principal); E27.40 Unspecified adrenocortical insufficiency; N17.9 Acute kidney failure, unspecified; E11.42 Type 2 diabetes mellitus with diabetic polyneuropathy; E11.65 Type 2 diabetes mellitus with hyperglycemia; E11.22 Type 2 diabetes mellitus with diabetic chronic kidney disease; I12.9 Hypertensive chronic kidney disease with stage 1 through stage 4 chronic kidney disease, or unspecified chronic kidney disease; N18.2 Chronic kidney disease, stage 2 (mild); R07.89 Other chest pain; F45.8 Other somatoform disorders; E86.0 Dehydration; E87.6 Hypokalemia; J45.909 Unspecified asthma, uncomplicated; G47.33 Obstructive sleep apnea (adult) (pediatric); E78.5 Hyperlipidemia, unspecified; Z79.84 Long term (current) use of oral hypoglycemic drugs
CPT/HCPCS: 36415; 71045; 76770; 80048; 80053; 80061; 82533; 82550; 82948; 83880; 84436; 84443; 84479; 84484; 85025; 85610; 85730; 93005; 99284; J7030